=== PATIENT | female | born 1985 | race American Indian/Alaskan Native ===

== ENCOUNTER 2018-01-06 10:17 | Emergency (ER) | payer OTHER ==
[2018-01-06 10:31] VITALS: BP 118/69
[2018-01-06] MEDS ORDERED: TORADOL IV ONE (11:57)
[2018-01-06 12:28] LABS: Bilirubin,Urine NEG (Negative); Blood,Urine NEG (Negative); Color,Urine Yellow (Yellow); Protein,Urine <15 mg/dL mg/dL (Negative); Urobilinogen,Urine < 2.0 mg/dL (<2.0); WBC,Urine < 1.0 /HPF (0.0-6.0)
[2018-01-06 12:45] LABS: Basophils # (Auto) 0.1 K/mm3 (0.0-0.1); Eosinophils % (Auto) 0.6 % (0.0-4.3); Hematocrit 41.3 % (30.3-42.9); Hemoglobin 13.9 gm/dl (10.1-14.3); Lymphocytes # (Auto) 1.7 K/mm3 (1.2-5.4); Lymphocytes % (Auto) 29.4 % (13.4-35.0); Mean Corpuscular HGB Conc 34 % (30-34); Mean Corpuscular Hemoglobin 32 pg (28-32); Mean Corpuscular Volume 96 fl (79-97); Monocytes # (Auto) 0.4 K/mm3 (0.0-0.8); Monocytes % (Auto) 6.5 % (0.0-7.3); Platelet Count 276 K/mm3 (140-440); Red Blood Count 4.33 M/mm3 (3.65-5.03)
[2018-01-06 12:59] LABS: Alanine Aminotransferase 10 units/L (7-56); Albumin 4.4 g/dL (3.9-5); BUN/Creatinine Ratio 20; Blood Urea Nitrogen 10 mg/dL (7-17); Calcium 8.8 mg/dL (8.4-10.2); Hemolysis Index 9
--- NOTE | 2018-01-06 14:31 | XRay Report ---
ROUTINE CHEST, TWO VIEWS: HISTORY: Chest pain. The trachea, heart, mediastinal contour, lung mendez and bony thorax are unremarkable. Previous surgical changes on the left seventh rib are noted. No displaced rib fracture is detected. IMPRESSION: Unremarkable chest x-ray.
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
== END 2018-01-06 15:39 | disposition home or self-care (01) ==
LOC: ED 10:17
DX: R10.84 Generalized abdominal pain (principal); F17.200 Nicotine dependence, unspecified, uncomplicated
CPT/HCPCS: 36415; 71046; 74177; 80053; 81001; 84702; 85025; 96374; 99284; J1885; Q9967